=== PATIENT | male | born 1960 | race African-American/Black ===

== ENCOUNTER 2023-02-12 09:46 | Emergency (ER) | payer OTHER, BC ==
[2023-02-12] MEDS ORDERED: Amoxicillin/Potassium Clav 875 MG TAB ONE (10:41)
[2023-02-12] MEDS ORDERED: Bacitracin 1 PK ONE (10:41)
[2023-02-12] MEDS ORDERED: HYDROcodone/Acetaminophen 5/325 mg Tablet ONE (10:41)
== END 2023-02-12 10:51 | disposition home or self-care (01) ==
LOC: CSHERS 09:46
DX: S41.152A Open bite of left upper arm, initial encounter (principal); W54.0XXA Bitten by dog, initial encounter
CPT/HCPCS: 99283